=== PATIENT | female | born 1980 | race African-American/Black ===

== ENCOUNTER 2019-08-15 14:29 | Emergency (ER) | payer BC ==
[~2019-08-15] VITALS: Ht 154.9 cm; Wt 46.3 kg
[~2019-08-15 14:29] MED LIST: PRENATAL PO
[2019-08-15 15:46] VITALS: BP 151/98
== END 2019-08-15 15:46 | disposition home or self-care (01) ==
LOC: ER 14:29
DX: J02.9 Acute pharyngitis, unspecified (principal); H92.01 Otalgia, right ear

== ENCOUNTER 2019-08-17 02:21 | Emergency (ER) | payer BC ==
[~2019-08-17] VITALS: Ht 154.9 cm; Wt 46.3 kg
[2019-08-17 02:22] VITALS: BP 161/97
[2019-08-17 03:20] LABS: HEMATOCRIT 40.9 % (37.0-47.0); HEMOGLOBIN 13.4 gm/dL (12.0-15.0); MCH 31.9 pg (26.0-34.0); MCHC 32.9 g/dL (28.0-37.0); MCV 96.8 fL (80.0-100.0); RBC 4.22 mil/uL (4.20-5.00); RDW 13.3 % (10.5-14.5); WBC 18.5 thou/uL (4.0-11.0)
[2019-08-17 03:27] LABS: CALCIUM 8.5 mg/dL (8.5-10.1); CREATININE 0.6 mg/dL (0.6-1.0); POTASSIUM 3.6 mmol/L (3.5-5.1)
[2019-08-17 05:50] VITALS: BP 145/85
--- NOTE | 2019-08-17 07:02 | NUR ---
ENT AT BEDSIDE TO PERFORM PROCEEDURE
[2019-08-17] MEDS ORDERED: IBUPROFEN 600600 M1 PO (07:29)
[2019-08-17] MEDS ORDERED: CLINDAMYCIN HC150 MG PO (07:29)
[2019-08-17] MEDS ORDERED: PREDNISONE 20 M20 MG PO (07:29)
[2019-08-17] MEDS ORDERED: NORCO 5-325 TA1 EAC1 PO (07:29)
[2019-08-17 07:34] VITALS: BP 147/100
--- NOTE | 2019-08-18 07:28 | HC ---
[facility] [place] [address] CONSULTATION Name: VIRGINIA HOPPER Haven Room #: DEP [facility]#: [id number] Admission: 08/17/19 Attend Phys: Discharge: 08/17/19 Date of : 84 Report #: [id number] THIS REPORT FOR: cc: NO FAMILY PHYSICIAN or PCP NO FAMILY PHYSICIAN or PCP Deep Benito MD ~ CC: Jimmy Moreno NO PCP DATE OF SERVICE: 08/17/2019 REASON FOR CONSULTATION: Possible peritonsillar abscess. HISTORY OF PRESENT ILLNESS: The patient is a 39-year-old female, originally presented to the Emergency Department on 08/15/2019. At that point, she had been complaining of right-sided throat and ear pain for approximately 2 days along with muffled sensation in her voice. At that point, plain x-rays were obtained, which did not suggest any abnormality at that time, she was discharged on ibuprofen and OTC care. She returned to the Emergency Department this morning with continued and increasing similar complaints. Previous strep culture had been negative. Her CBC today demonstrated a white count of 18,500. Emergency Room physician appropriately ordered a CT scan of her neck, which did demonstrate a probable abscess pocket in the right superior peritonsillar region consistent with the patient's presentation. No known history of exposure for tonsillitis or strep throat. No previous history of tonsil problems. PAST MEDICAL HISTORY: Notable for "epiglottitis." HOME MEDICATIONS: She reports no home medications aside from anti-inflammatories. ALLERGIES: No known allergies to medications. REVIEW OF SYSTEMS: Unremarkable for any GI, , cardiovascular or pulmonary issues outside of the right-sided odynophagia, mild right trismus and scant right otalgia. PHYSICAL EXAMINATION: GENERAL: She is alert, oriented, appeared to be her stated age. Blood pressure recorded 161/97. She is afebrile. She has a slightly muffled voice. She has two fingerbreadths trismus. HEENT: Ears was unimpressive. Neck reveals some mild high JOSS adenopathy on the right side, moderately tender than on the left side. Intranasal exam is normal. Oral cavity reveals 2-finger trismus, should be noted that she has severe edema of the soft palate on the right side with severe deviation of the right palatine [address] [address] CONSULTATION Name: VIRGINIA HOPPER Haven Room #: DEP [facility]#: [id number] Admission: 08/17/19 Attend Phys: Discharge: 08/17/19 Date of : 84 Report #: [id number] tonsil to the right side, whitish peritonsillar exudates are noted. The uvula is edematous and deviated to the left side as well. ASSESSMENT: Right peritonsillar abscess, peritonsillar cellulitis. RECOMMENDATIONS: I discussed with the patient the findings, I recommended at that time she consider aspiration/incision and drainage of the abscess. See procedure note. Prior to being seen, the patient was given both IV clindamycin and Solu-Medrol and Toradol by the Emergency Room physicians for comfort. After finishing the procedure, the patient noted great improvement in her symptoms and she will be discharged to home on oral clindamycin oral steroids. Office followup will be based on the need. Thank you for the consultation. <ELECTRONICALLY SIGNED> By: Deep Benito MD 08/18/19 0728 0732 [id number] Deep Benito MD /nt
--- NOTE | 2019-08-18 07:28 | P ---
[facility] [place] [address] PROCEDURE REPORT Name: VIRGINIA HOPPER Room #: DEP [facility]#: [id number] Admission: 08/17/19 Attend Phys: Discharge: 08/17/19 Date of : 84 Report #: [id number] THIS REPORT FOR: cc: NO FAMILY PHYSICIAN or PCP NO FAMILY PHYSICIAN or PCP Deep Benito MD ~ CC: Jimmy Moreno NO PCP DATE OF SERVICE: 08/17/2019 DESCRIPTION OF PROCEDURE: After obtaining verbal consent from the patient and the patient is understanding the procedure, I proceeded to spray the oropharynx with Hurricaine [place]. I then instilled 2 mL of 1% Xylocaine 1:100,000 epinephrine into the right superior soft palate over the area of maximal fluctuation. After waiting several minutes, using an 18-gauge needle, I then made 2 passes immediately encountered an abscess pocket, removing approximately 15 mL of faded somewhat viscous mucopurulence. I then took the 18-gauge needle and made an approximately 1 cm incision in this area and then explored it again and was not able to obtain any other purulent discharge, firmly with a couple Q-tips as well as the agger suction and did not receive any further drainage. The patient noted immediate improvement in her trismus and immediate reduction in her pain. She tolerated the procedure well. Estimated blood loss less than 5 mL. <ELECTRONICALLY SIGNED> By: Deep Benito MD 08/18/19 0728 0732 [id number] Deep Benito MD /rolando
== END 2019-08-17 08:15 | disposition home or self-care (01) ==
LOC: ER 02:21 → EROBS 05:46 → ER 05:46
PROVIDERS: Emergency Medicine
DX: J36 Peritonsillar abscess (principal); R05 Cough